=== PATIENT | male | born 1990 | race Caucasian/White ===

== ENCOUNTER 2017-10-21 07:26 | Emergency (ER) | payer OTHER ==
[~2017-10-21] VITALS: Ht 172.7 cm; Wt 185.0 kg
[2017-10-21 07:32] VITALS: BP 165/106; PULSE 101; RESP 16; TEMP 98.7; O2SAT 96
[2017-10-21] MEDS ORDERED: METO1TAB43 PO (07:59)
[2017-10-21] MEDS ORDERED: KLOR20TA3 PO (07:59)
[2017-10-21] MEDS ORDERED: SYMB160A INH (07:59)
[2017-10-21] MEDS ORDERED: HYDR25TA5 PO (07:59)
[2017-10-21] MEDS ORDERED: FLUTI44I INH (07:59)
[2017-10-21] MEDS ORDERED: ROBA500T PO (08:08)
[2017-10-21] MEDS ORDERED: IBUP1TAB7 PO (08:08)
--- NOTE | 2017-10-21 08:08 | PD ---
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 Denies paresthesias, loss of sensation, decreased range motion, decreased strength to all extremities. Denies fever, vomiting. Denies chest pain, shortness of breath. Denies pain is midline to the spine. Denies difficulty ambulating. Has not taken any medication to alleviate his symptoms. Rates pain 3/10. Described as a ache and sometimes a stabbing sensation. Says pain is constant. No known aggravating or relieving factors. Dr. Snow is primary care provider. Allergies to levofloxacin. History of hypertension and asthma. Has not taken his blood pressure medication yet this morning. Has no other medical complaints. No other modifying factors or associated signs and symptoms. [facility] Social History Tobacco Use: No Allergies-Medications (Allergen,Severity, Reaction): Coded Allergies: levofloxacin (Verified Allergy, Severe, RESP DISTRESS, 10/21/17) Reported Meds & Prescriptions Reported Meds & Active Scripts Active Ibuprofen 800 Mg Tab 800 Mg PO Q6HR PRN Robaxin (Methocarbamol) 500 Mg Tab 500 Mg PO QID PRN Reported Symbicort Inh (Budesonide/Formoterol Fumarate) 160-4.5 Mcg/Act Aero 2 Puff INH Q12HR Flovent Hfa 10.6 GM Inh (Fluticasone Propionate) 44 Mcg/Act Inh Unknown Dose INH BID Use daily at the same time. Klor-Con M20 (Potassium Chloride Microencaps) 20 Meq Tab 20 Meq PO DAILY Hydrochlorothiazide 25 Mg Tab 25 Mg PO DAILY Metoprolol Succinate ER 24 HR (Metoprolol Succinate) 100 Mg Tab 100 Mg PO DAILY Review of Systems Except as stated in HPI: all other systems reviewed are Neg Physical Exam Narrative GENERAL: Well-nourished, well-developed male patient, in no acute distress SKIN: Warm and dry. HEAD: Atraumatic. Normocephalic. EYES: Pupils equal and round. No scleral icterus. No injection or drainage. ENT: Mucosa pink and moist. Airway patent. NECK: Trachea midline. CARDIOVASCULAR: Regular rate and rhythm. No murmur appreciated. RESPIRATORY: No accessory muscle use. Breath sounds clear and equal bilaterally. No retractions or tachypnea. GASTROINTESTINAL: Morbidly Obese. MUSCULOSKELETAL: No obvious deformities. No clubbing. No cyanosis. No edema. BACK: No point tenderness on palpation of the thoracic or lumbar spine. Reproducible tenderness to the right trapezius muscle just below and medial at the scapula. NEUROLOGICAL: Awake and alert. Oriented 3. No obvious cranial nerve deficits. Motor grossly within normal limits. 5/5 strength. Normal speech. PSYCHIATRIC: Appropriate mood and affect; insight and judgment normal. Data Data Last Documented VS Vital Signs Date Time Temp Pulse Resp B/P (MAP) Pulse Ox O2 Delivery O2 Flow Rate FiO2 10/21/17 07:32 98.7 101 16 165/106 (125) 96 Room Air Orders Orders Ed Discharge Order (10/21/17 08:09) MDM Medical Decision Making Medical Screen Exam Complete: Yes Emergency Medical Condition: Yes Medical Record Reviewed: Yes Differential Diagnosis Muscle strain, muscle spasm, back injury Narrative Course 26-year-old male with right trapezius muscle strain. This is a work-related injury. Patient is a [employer] employee. He has no midline tenderness on palpation of the thoracic or lumbar spine. I do not feel that imaging is necessary at this time. I offered the patient pain medication and muscle relaxer in the ER and he declined. Patient has history of hypertension and has not taken his morning medications. Patient verbalized that he will take his medication on arrival home. He is asymptomatic. Ibuprofen and Robaxin prescribed for home. Instructed patient to follow up with primary care provider. Patient verbalizes understanding and agreement with treatment plan. Patient is medically cleared and stable for discharge. Discussed reasons to return to the emergency department. Patient agrees with treatment plan. The patients vital signs are stable and the patient is stable for outpatient follow- up and treatment. Patient discharged home, stable and in no acute distress. Diagnosis Primary Impression: Strain of right trapezius muscle Qualified Codes: S46.811A - Strain of other muscles, fascia and tendons at shoulder and upper arm level, right arm, initial encounter Referrals: [facility] ([facility] – [place], [place]) Human Resources Primary Care Physician Patient Instructions: General Instructions, Muscle Spasm (ED), Muscle Strain ( ED) Departure Forms: Tests/Procedures, Work Release Enter return to work date: Oct 22, 2017 Additional Instructions: Tylenol or ibuprofen as directed and as needed for pain Robaxin as prescribed and as needed for muscle spasms Heating pad and/or ice to affected area to reduce pain Avoid aggravating activities; increase activity as tolerated Follow-up with primary care provider Return to emergency department immediately with worsening of symptoms Med/Other Pt SpecificInfo: Prescription(s) given Scripts Ibuprofen (Ibuprofen) 800 Mg Tab 800 MG PO Q6HR Y for PAIN, #30 TAB 0 Refills Prov: Carline Barillas 10/21/17 Methocarbamol (Robaxin) 500 Mg Tab 500 MG PO QID Y for MUSCLE SPASM, #30 TAB 0 Refills Prov: Carline Barillas 10/21/17 Disposition: 01 DISCHARGE HOME Condition: Stable Carline Barillas Oct 21, 2017 08:08
== END 2017-10-21 08:23 | disposition home or self-care (01) ==
LOC: NEPD 07:26
DX: S46.811A Strain of other muscles, fascia and tendons at shoulder and upper arm level, right arm, initial encounter (principal); I10 Essential (primary) hypertension; E66.01 Morbid (severe) obesity due to excess calories; Z79.899 Other long term (current) drug therapy; Z88.8 Allergy status to other drugs, medicaments and biological substances; X50.9XXA Other and unspecified overexertion or strenuous movements or postures, initial encounter; Y99.0 Civilian activity done for income or pay
CPT/HCPCS: 99283